=== PATIENT | male | born 1955 | race Caucasian/White ===

== ENCOUNTER 2017-03-20 07:51 | Day surgery (SDC) | payer MEDICARE ==
[2017-03-20] VITALS (8 sets, daily range): BP systolic 104–127; BP diastolic 65–83; PULSE 62–78; RESP 14–18; O2SAT 95–97
[~2017-03-20] VITALS: Ht 180.3 cm; Wt 111.6 kg
[~2017-03-20 07:51] MED LIST: ALBU2.5V4 INHALATION; ATOR20TA PO; Clindamycin Inj 900 MG in IV Premix 1 EACH IV ONE; IPRA0.2S51 IH; LEVO50TA6 PO; Lactated Ringer's 1,000 ML IV SCH
[2017-03-20] MEDS ORDERED: Ondansetron 2 mg/mL 2 mL Inj ONE (07:52)
[2017-03-20] MEDS ORDERED: Propofol 10,000 mCg/mL 20 mL Inj ONE (07:52)
[2017-03-20] MEDS ORDERED: fentaNYL-PF 50 mCg/mL 2 mL Inj ONE (07:52)
[2017-03-20] MEDS ORDERED: Ketamine 10 mg/mL 20 mL Inj ONE (07:52)
[2017-03-20] MEDS ORDERED: Lactated Ringer's 1,000 ML IV ONE (08:27)
[2017-03-20] MEDS ORDERED: MetoCLOpramide 5 mg/mL 2 mL Inj IVPUSH PRN (08:30)
[2017-03-20] MEDS ORDERED: Ondansetron 2 mg/mL 2 mL Inj IVPUSH PRN (08:30)
[2017-03-20] MEDS ORDERED: EPHEDrine Sulfate 50 mg/mL Inj IVPUSH PRN (08:30)
[2017-03-20] MEDS ORDERED: Dexamethasone 4 mg/mL Inj IVPUSH PRN (08:30)
[2017-03-20] MEDS ORDERED: Lactated Ringer's 500 ML IV PRN (08:30)
[2017-03-20] MEDS ORDERED: HYDROmorphone 1 mg/mL Inj IVPUSH PRN (08:30)
[2017-03-20] MEDS ORDERED: Lactated Ringer's 1,000 ML IV SCH (08:30)
[2017-03-20] MEDS ORDERED: Phenylephrine 10,000 mCg/mL Inj IVPUSH PRN (08:30)
--- NOTE | 2017-03-20 08:30 | PCM.HPANE ---
Patient Data Surgeon Admitting Provider: Attending Provider:Steven Juárez MD Primary Care Physician:Other,Physician Other Provider:Pradeep Rodriguez Anesthesia Reason for Visit Left Index Severed Tendon Ht/WT & BMI Height (Feet): 5 Height (Inches): 11 Weight (Kilograms): 111.584 Body Mass Index 34.00 Allergies Coded Allergies: No Known Allergies (Unverified , 03/18/17) Past Anesthesia History Anesthesia History: Denies:: Abnormal Airway, Difficult Intubation, Fam Anesthesia Reaction, Fam Malignant Hypertherm Diabetes History Hx Diabetes?: No MRSA MRSA: No Medications Hypertension Medication: No Home Meds Incl Beta Maribeth: No Reported Medications Atorvastatin (Lipitor)20 Mg [id number] Mg PO DAILY Ref 0 03/18/17 Levothyroxine 50 Mcg [id number] Mcg PO DAILY Ref 0 03/18/17 Ipratropium Okarche (Ipratropium Okarche Inhalant Solution)0.2 Mg/1 Ml Solution0.2 Mg IH QID Ref 0 03/18/17 Albuterol Neb Soln 2.5 Mg/3 Ml Vial.neb2.5 Mg INHALATION Q4H PRN For Shortness of Breath Ref 0 03/18/17 History History of ENT Problems?: No HEENT History: Denies:: Abnormal Airway Difficult Intubation Denture Type: None Teeth Condition: Within Normal Limits Hx of Heart Problems?: Yes Cardiovascular History: Denies:: Heart Murmur Hypertension (HYPERLIPIDEMIA) Hx of Respiratory Problem?: Yes Respiratory History: Positive for:: Asthma Use of Inhalers / NEBS Denies:: Use of C-PAP Machine Hx Neurologic Problems?: No Neurological History: Denies:: Alzheimer's Disease CVA Dementia Dizziness Headaches Multiple Sclerosis Parkinson's Disease Peripheral Neuropathy Seizures TIA Hx of GI Problems?: Yes Gastrointestinal History: Denies:: Cirrhosis Diverticulitis Gall Bladder Disease Gastroesphageal Reflux Gastrointestinal Bleeding Heartburn Hepatitis Hiatal Hernia Liver Disease Rectal Bleeding Hx of Problems?: No HX of Peritoneal Dialysis: No Male Hx: Denies:: Prostate Problems Scrotal Mass Testicular Surgery Skin History: Positive for:: History Skin Disorders? (HEALING LACERATION LT INDEX FINGER) Denies:: Pressure Ulcers Hx Musculoskeletal Problems?: Yes Musculoskeletal History: Positive for:: Musculoskeletal Trauma (LT INDEX FINGER SEVERED TENDON=CURRENT PROBLEM) Hx of Psycho/Social Problems?: No Hx Surgeries?: No Hx Any Other Health Problems?: No Other History: Positive for:: Thyroid Disease Denies:: Cancer Endocrine Disease Hospitalization Hx Diabetes: No Stop/Bang S-Snoring: Do You Snore Loudly: No T-Tired: feel tired, fatigued: No O-Obsered: Observed not breath: No P-Blood Pressure: treated: No B- Body Mass Index > 35 kg/m2: No A- Age over 50: Yes N- Neck Large Circumference: Yes G- Gender Male: Yes GABRIEL Total Score: 3 GABRIEL Risk Assessment: High Risk, =/>3 Yes GABRIEL Category 4 OutPt Procedure: Yes Risk Assessment Category Category 1A: Patient has history of documented sleep apnea, and HAS NOT received any narcotic, sedative or anesthesia administration during this stay. Category 1B: Patient has history of documented sleep apnea, and HAS received any narcotic , sedative or anesthesia administration during this stay Category 2: Patient has SUSPECTED Obstructive Sleep Apnea, and HAS received any narcotic , sedative or anesthesia administration during this stay. Category 3: Patient has SUSPECTED Obstructive Sleep Apnea and HAS NOT received narcotic, sedative or anesthesia administration during this stay. Category 4: Outpatient in Procedural Areas with known sleep apnea or who screen positive for High Risk via the STOP/BANG questionnaire. Exam Exam General Appearance: Alert, Oriented X3, Cooperative, No Acute Distress HEENT/AIRWAY: MP 2 Lungs: Clear to Auscultation, Normal Air Movement Heart: Exam Unremarkable, Regular Rate/Rhythm, No Murmurs/Rubs/Gallops Meds/Labs/Diagnostics Admission Meds Current Medications Lactated Ringer's (Lr) 1,000 ml @ ud STK-MED ONCE IV Last administered on t 08:27; Start 03/20/17 at 08:27; Stop 03/20/17 at 08:28; Status DC Plan Impression Patient chart reviewed, patient interviewed and anesthestic plan with risks, benefits, and alternatives discussed, and informed consent obtained. ASA Physical Status: ASA2 Mod Systemic Disease Anesthetic Plan: GA Bene/Risks/Altern/Consents: Yes HP Complete Prior to Induction: Yes Feroz Fernandez MD Mar 20, 2017 08:30
[2017-03-20] MEDS ORDERED: Bupivacaine-MPF 0.5% 30 mL Inj INFILTRATE ONE (10:33)
[2017-03-20] MEDS ORDERED: Gentamicin 40 mg/mL 2 mL Inj IRRIGATION ONE (10:33)
[2017-03-20] MEDS ORDERED: Bacitracin Ointment Packet TOPICAL ONE (10:41)
[2017-03-20] MEDS ORDERED: oxyCODONE-Acetamin 5-325 mg Tablet PO PRN (11:30)
[2017-03-20] MEDS: fentaNYL-PF 50 mCg/mL 2 mL Inj IVPUSH PRN ×2 (11:58→12:04)
--- NOTE | 2017-03-20 12:13 | PCM.ANEP1 ---
Post Anesthesia PACU Phase 1 Assessment Vital Signs Vital Signs Date Time Temp Pulse Resp B/P Pulse Ox O2 Delivery O2 Flow Rate FiO2 03/20/17 11:40 69 18 123/65 95 Nasal Cannula 2 03/20/17 11:35 66 16 113/73 95 Nasal Cannula 2 03/20/17 11:30 78 16 111/71 97 Simple Mask 10 03/20/17 11:25 36.6 65 14 117/68 97 Simple Mask 10 03/20/17 08:31 36.5 62 17 127/83 97 Room Air Anesthetic Administered: GA Level of Alertness: Sleepy, easy to arouse DE LEON's with Equal Strength: Yes Pain: No Nausea or Vomiting: No CV Function & Hydration Stable: Yes Airway Device: none Oxygen Delivery: Nasal Cannula Lungs: Clear to Auscultation, Normal Air Movement Dermatome Level: Full Sensation PACU Phase 2 Assessment Complications: No Follow up Care: No Patient Instructions Provided: Yes Feroz Fernandez MD Mar 20, 2017 12:13
--- NOTE | 2017-03-22 04:40 | OP ---
[address] [address] OPERATIVE REPORT PATIENT: ANITA ALVAREZ : 1955 MR#: [id number] ADMIT: 03/20/2017 JOB ID: [id number] DATE OF SURGERY: 03/20/2017 PREOPERATIVE DIAGNOSIS(ES): Left hand laceration with tendon injury. POSTOPERATIVE DIAGNOSIS(ES): 1. Left hand laceration with laceration of the extensor digitorum communis tendon to the index finger. 2. Laceration of the extensor indicis proprius tendon. 3. Left dorsal hand abscess. PROCEDURE: 1. Exploration of penetrating trauma to the left hand with extension of the incision of subsequent closure. 2. Repair of extensor digitorum communis tendon to the index finger, zone six. 3. Repair of extensor indicis proprius tendon, zone six. 4. Irrigation and drainage of left dorsal hand abscess. SURGEON: Steven Juárez MD. PRACTICE MANAGERS: None. ANESTHESIA: General anesthesia. COMPLICATIONS: None apparent. SPECIMEN: None. ESTIMATED BLOOD LOSS: Minimal. INDICATIONS FOR PROCEDURE: This is a 61-year-old male patient who sustained a laceration to the dorsum of his left hand using an angle meat grinder approximately one week ago. The skin was reapproximated at the urgent care. Examination is consistent with extensor laceration to the index finger. At this point, exploration of the wound and repair of the lacerated tendons are indicated. PROCEDURES AND FINDINGS: The patient was identified in the preoperative area and surgical site was marked. It was noted that patient has some swelling on the dorsum of the hand down to the wrist where an [place] bandage was applied. The patient was then taken back to the operating room and placed supine on the operating table. Appropriate time-outs were taken. General anesthesia was induced smoothly. The patient was then prepped and draped in the usual sterile manner. A radial wrist block was then carried out with 0.25% Marcaine. I then turned my attention to the dorsum of the left hand. There is an oblique laceration near the neck of the index finger metacarpal bone approximately cm in length. This was repaired with Prolene. The Prolene sutures were removed. I then performed blunt dissection to deepen the incision down to the extensor apparatus. It was noted that both the extensor digitorum communis tendon and the extensor indicis proprius tendons were lacerated. The proximal had retracted. I made a second incision that is approximately 90 degrees to the first incision and extends from the proximal end of the incision. Incision was then made with a #15 blade down through the skin. I then performed blunt and sharp dissection to complete the incision down to the level of the extensor tendon. As this incision was being deepened, I encountered a pocket of abscess as well as fluid. There was quite a bit of inflammatory rind in this area as well. I removed as much of the inflammatory rind as I could with Ray-Varun as well as with forceps. The area was then irrigated with copious amounts of antibiotic solution consisting of gentamycin. The proximal ends of the last of the tendons were then identified. I first turned my attention to the extensor digitorum communis tendon. The tendon ends were first brought into close reapproximation with 3-0 Ethibond horizontal mattress sutures. Once the tendon ends were brought in approximation, a modified Mora weave was then carried out outside of the horizontal mattress suture to provide a four strand repair. I then turned my attention to the extensor indicis proprius tendon ends. Again, a similar repair was carried out. Once the core suture has been placed, I placed a 5-0 running cross stitch circumferentially around both tendons with 5-0 Prolene suture. At this point, the finger was ranged and the wrist was ranged. The nerve repair appeared to be quite secure. Tourniquet was released and hemostasis was obtained with electrocautery. The incision was then reapproximated using four 4-0 nylon horizontal mattress sutures. This was done to give some room for drainage to occur to prevent further abscess formation. The patient was then placed into a well-padded volar splint, keeping the wrist and MCP in extension. The patient tolerated the procedure well. Needle count, sponge count and instrument counts were correct at the end of the procedure. The patient was extubated and transported to recovery in stable condition.
== END 2017-03-20 23:59 | disposition home or self-care (01) ==
LOC: SAS 07:51
PROVIDERS: ATTEND Plastic Surgery
DX: S66.321A Laceration of extensor muscle, fascia and tendon of left index finger at wrist and hand level, initial encounter (principal); L02.512 Cutaneous abscess of left hand; J45.909 Unspecified asthma, uncomplicated
CPT/HCPCS: 20005; 26410; J1580; J2405; J3010; J7120